=== PATIENT | female | born 1955 | race Caucasian/White ===

== ENCOUNTER 2019-05-28 04:27 | Inpatient (IN) | payer MEDICARE ==
[2019-05-28] MEDS ORDERED: Adenosine 6 MG/2 ML SDV IVPUSH ONE (04:31)
--- NOTE | 2019-05-28 04:40 | EDM.PDOC ---
ED HPI GENERAL MEDICAL PROBLEM - General Chief Complaint: Cardiovascular Problem Stated Complaint: MEDICAL [facility] Time Seen by Provider: 05/28/19 04:38 Source of Information: Reports: Patient History Limitations: Reports: No Limitations - History of Present Illness INITIAL COMMENTS - FREE TEXT/NARRATIVE: pt arrived with a rapid heart rhythm. She got up to go to the br and she noticed that her heart was rapid. She did not have chest pain. She did feel mildly sob. Onset: Today, Gradual, Other ( started at 3 am. ) Duration: Hour(s): Location: Reports: Chest Associated Symptoms: Reports: Diaphoresis, Shortness of Breath neck Pain Score (Numeric/FACES): 9 - Related Data Allergies Allergy/AdvReac Type Severity Reaction Status Date / Time tetracycline Allergy Other Verified 05/28/19 04:28 Home Meds: Home Meds Albuterol Sulfate [Proair Hfa] 2 puff IH Q4H PRN 03/11/17 [History] Alendronate [Fosamax] 70 mg PO WEEKLY 03/11/17 [History] Fluticasone Propionate [Flonase] 2 sprays NS DAILY PRN 03/11/17 [History] Gabapentin [Neurontin] 300 mg PO BEDTIME 03/11/17 [History] Melatonin 5 mg PO BEDTIME PRN 03/11/17 [History] Meloxicam 7.5 mg PO DAILY 03/11/17 [History] Pantoprazole Sodium [Protonix] 40 mg PO DAILY 03/11/17 [History] Simvastatin 10 mg PO BEDTIME 03/11/17 [History] Cholecalciferol (Vitamin D3) [Vitamin D] 5,000 unit PO DAILY 05/28/19 [History] [place]-3/DHA/Epa/Fish Oil [Fish Oil 1,000 mg Softgel] 1 each PO DAILY 05/28/19 [ History] ED ROS GENERAL - Review of Systems Review Of Systems: See Below Constitutional: Reports: Weakness HEENT: Reports: No Symptoms Respiratory: Reports: Shortness of Breath Cardiovascular: Reports: Palpitations, Other (pt felt like her heart was rapid. ) Endocrine: Reports: No Symptoms GI/Abdominal: Reports: No Symptoms : Reports: No Symptoms Musculoskeletal: Reports: No Symptoms Skin: Reports: No Symptoms ED EXAM, GENERAL - Physical Exam Exam: See Below Free Text/Narrative:: pt went to the br at about 3 am and it was then that she noticed that her heart was racing. She has no past history of atrial fib. Exam Limited By: No Limitations General Appearance: Alert, Anxious, Mild Distress, Other (pt has very mild tightness in her chest since her heart is so rapid. ) Ears: Normal TMs Nose: Normal Inspection Throat/Mouth: Normal Inspection Head: Atraumatic Neck: Normal Inspection Respiratory/Chest: No Respiratory Distress Cardiovascular: Tachycardia, Irregularly Irregular GI/Abdominal: Soft, Non-Tender (Female) Exam: Deferred Rectal (Female) Exam: Deferred Back Exam: Normal Inspection Extremities: Normal Inspection Neurological: Alert, Oriented, Normal Cognition Psychiatric: Normal Affect Course - Vital Signs Last Recorded V/S: Last Vital Signs Temp 35.9 C 05/28/19 07:43 Pulse 68 05/28/19 13:33 Resp 13 05/28/19 13:33 BP 133/68 05/28/19 13:33 Pulse Ox 90 L 05/28/19 13:33 - Orders/Labs/Meds Labs: Laboratory Tests 05/28/19 05/28/19 05/28/19 Range/Units 04:40 04:40 04:40 WBC 11.4 H (4.5-11.0) K/uL RBC 4.67 (3.30-5.50) M/uL Hgb 14.3 (12.0-15.0) g/dL Hct 41.9 (36.0-48.0) % MCV 90 (80-98) fL MCH 31 (27-31) pg MCHC 34 (32-36) % Plt Count 418 H (150-400) K/uL Neut % (Auto) 47 (36-66) % Lymph % (Auto) 44 (24-44) % [place] % (Auto) 7 H (2-6) % Eos % (Auto) 1 L (2-4) % Baso % (Auto) 0 (0-1) % Sodium 139 L (140-148) mmol/L Potassium 3.8 (3.6-5.2) mmol/L Chloride 105 (100-108) mmol/L Carbon Dioxide 24 (21-32) mmol/L Anion Gap 13.8 (5.0-14.0) mmol/L BUN 14 (7-18) mg/dL Creatinine 0.9 (0.6-1.0) mg/dL Est Cr Clr Drug Dosing 51.55 mL/min Estimated GFR (MDRD) > 60 (>60) Glucose 136 H (74-106) mg/dL Calcium 8.9 (8.5-10.1) mg/dL Magnesium (1.8-2.4) mg/dL Total Bilirubin 0.3 (0.2-1.0) mg/dL AST 22 (15-37) U/L ALT 22 (12-78) U/L Alkaline Phosphatase 72 (46-116) U/L Troponin I 0.027 (0.000-0.056) ng/mL Total Protein 6.8 (6.4-8.2) g/dL Albumin 3.5 (3.4-5.0) g/dL Globulin 3.3 (2.3-3.5) g/dL Albumin/Globulin Ratio 1.1 L (1.2-2.2) TSH, Ultra Sensitive (0.358-3.740) uIU/mL 05/28/19 05/28/19 Range/Units 04:40 04:40 WBC (4.5-11.0) K/uL RBC (3.30-5.50) M/uL Hgb (12.0-15.0) g/dL Hct (36.0-48.0) % MCV (80-98) fL MCH (27-31) pg MCHC (32-36) % Plt Count (150-400) K/uL Neut % (Auto) (36-66) % Lymph % (Auto) (24-44) % [place] % (Auto) (2-6) % Eos % (Auto) (2-4) % Baso % (Auto) (0-1) % Sodium (140-148) mmol/L Potassium (3.6-5.2) mmol/L Chloride (100-108) mmol/L Carbon Dioxide (21-32) mmol/L Anion Gap (5.0-14.0) mmol/L BUN (7-18) mg/dL Creatinine (0.6-1.0) mg/dL Est Cr Clr Drug Dosing mL/min Estimated GFR (MDRD) (>60) Glucose (74-106) mg/dL Calcium (8.5-10.1) mg/dL Magnesium 2.0 (1.8-2.4) mg/dL Total Bilirubin (0.2-1.0) mg/dL AST (15-37) U/L ALT (12-78) U/L Alkaline Phosphatase (46-116) U/L Troponin I (0.000-0.056) ng/mL Total Protein (6.4-8.2) g/dL Albumin (3.4-5.0) g/dL Globulin (2.3-3.5) g/dL Albumin/Globulin Ratio (1.2-2.2) TSH, Ultra Sensitive 2.456 (0.358-3.740) uIU/mL Meds: Medications Discontinued Medications Generic Name Dose Route Start Last Admin Trade Name Freq PRN Reason Stop Dose Admin Adenosine 6 mg 05/28/19 04:31 05/28/19 04:44 Adenocard IVPUSH 05/28/19 04:32 6 mg NOW ONE Administration Albuterol 0 gm 05/28/19 06:21 Ventolin Hfa INH Q4H PRN Shortness of Breath Aspirin 324 mg 05/28/19 14:02 05/28/19 14:11 Aspirin PO 05/28/19 14:03 324 mg ONETIME ONE Administration Diltiazem HCl 10 mg 05/28/19 04:49 05/28/19 05:05 Diltiazem IVPUSH 05/28/19 04:50 10 mg ONETIME ONE Administration Diltiazem HCl 10 mg 05/28/19 06:23 05/28/19 06:27 Diltiazem IVPUSH 05/28/19 06:24 10 mg ONETIME ONE Administration Fluticasone Propionate 0 gm 05/28/19 06:21 Flonase NASBOTH DAILY PRN Congestion Diltiazem HCl 125 mg/ Sodium 125 mls @ 5 mls/hr 05/28/19 05:00 05/28/19 09:12 Chloride IV 0 mg/hr TITRATE IGNACIO 0 mls/hr Titration Protocol 5 MG/HR Sodium Chloride 1,000 mls @ 200 mls/hr 05/28/19 05:00 05/28/19 05:07 Normal Saline IV 200 mls/hr ASDIRECTED IGNACIO Administration Sodium Chloride 1,000 mls @ 125 mls/hr 05/28/19 06:30 Normal Saline IV ASDIRECTED IGNACIO - Re-Assessments/Exams Free Text/Narrative Re-Assessment/Exam: 05/28/19 04:57 pt was given adenogard 6 mg iv nd this did show that she was in atrial fib. A cardizem bolus of 10 mg and a cardizem drip was started. She does have a bp of 102 so will add fluids at 200 an watch her bp carefully. Departure - Departure Time of Disposition: 07:50 Disposition: Admitted As Inpatient 64 Condition: Fair Clinical Impression: Atrial fibrillation, new onset
[2019-05-28] MEDS ORDERED: Diltiazem 25 MG/5 ML SDV IVPUSH ONE ×2 (04:49→06:23)
[2019-05-28] MEDS ORDERED: Diltiazem 125 MG in Sodium Chloride 0.9% 100 ML IV SCH (05:00)
[2019-05-28] MEDS ORDERED: Sodium Chloride 0.9% 1,000 ML IV SCH ×2 (05:00→06:30)
--- NOTE | 2019-05-28 05:32 | CRLCR ---
INDICATION: RAPID HEARTRATE TECHNIQUE: Chest 1 view. COMPARISON: None. FINDINGS: Cardiovascular and mediastinum: Heart size and vasculature are normal in caliber and appearance. Mediastinum is within normal limits. Lungs and pleural space: Lungs are clear. No sign of infiltrate or mass. No sign of pleural effusion. No pneumothorax. Bones and soft tissues: No significant findings. IMPRESSION: Unremarkable chest. Dictated by: Rony Singh MD @ 05/28/2019 05:29:28 (Electronically Signed)
[2019-05-28] MEDS ORDERED: Albuterol 8 GM Inhaler INH PRN (06:21)
[2019-05-28] MEDS ORDERED: Fluticasone Propionate Nasal Spray 16 GM Bottle NASBOTH PRN (06:21)
--- NOTE | 2019-05-28 12:47 | HP ---
CHIEF COMPLAINT: Tightness in her chest. HISTORY OF PRESENT ILLNESS: A 63-year-old who states that she has had few episodes similar to this in the past but only lasts for a few seconds and she will belch, and it will go away. About 3 a.m., she got up to go to the bathroom and had a tightness in her chest and felt that her heart was racing. She felt a little bit short of breath, sat down, and tried to take some deep breaths but it did not go away. Came in by ambulance for further evaluation. She was evaluated by emergency room physician, was noted to be in atrial fibrillation with rapid ventricular response. The patient given IV diltiazem and then started on diltiazem drip, which really has not slowed down much. I was asked to admit the patient for further evaluation and treatment. The patient denied any chest pain. She has shortness of breath with a little bit of tightness in her chest. She denies a history of heart problems in the past other than few of these episodes, which lasted for few seconds in the past. PAST MEDICAL HISTORY: She has had chronic back problems. She had right fifth finger surgery, but otherwise, she states really not a lot of other medical problems. MEDICATIONS: She takes alendronate 70 mg weekly, albuterol inhaler p.r.n., vitamin D, gabapentin 300 mg at bedtime, melatonin 5 mg at bedtime p.r.n., meloxicam 7.5 mg daily, omega-3, pantoprazole 40 mg daily, simvastatin 10 mg daily, and Flonase nasal spray. ALLERGIES: TO TETRACYCLINE. SOCIAL HISTORY: She smokes a few cigarettes a day. Alcohol, she drinks 2 drinks a year. FAMILY HISTORY: Father had bypass surgery. Brother had heart trouble. REVIEW OF SYSTEMS: Denies headaches, vision changes, or upper respiratory symptoms. No chest pain. Just a little bit of tightness with shortness of breath. No cough. No nausea, vomiting, diarrhea, or constipation. No urinary problems reported. No swelling in her legs. No skin problems reported. No neurologic complaints reported. OBJECTIVE: VITAL SIGNS: Weight 69 kg; temperature 35.4; pulse 130s to 150s, currently in the 140s; blood pressure 102/74; respirations 17 to 24; O2 saturation 91% on room air, was 95% on 1 L. NEUROLOGIC: She is alert and oriented x3. Mental status is normal. HEENT: Pharynx is clear. NECK: Supple. No adenopathy, thyromegaly, JVD, or carotid bruits. LUNGS: Clear. HEART: Irregularly irregular with tachycardia. ABDOMEN: Soft, nontender. No mass or organomegaly palpated. EXTREMITIES: No edema. Pedal pulses are palpable and equal bilaterally. SKIN: Negative. NEUROLOGIC: Cranial nerves II through XII are grossly intact. DATA: EKG shows atrial fibrillation with rapid ventricular response. Lab: White count 11.4, hemoglobin 14.3, and platelets 418,000. Sodium 139, potassium 3.8, chloride 105, BUN is 14, creatinine 0.9, and glucose 136. Liver functions were normal. Troponin 0.027. TSH 2.456. ASSESSMENT: Atrial fibrillation with rapid ventricular response. Continue with diltiazem drip and we will transfer her care to the Hospitalist Service for further evaluation. Get another troponin in a few hours. Check serial enzymes. Rony Peralta MD /[id number]
[2019-05-28 13:34] VITALS: BP 133/68; PULSE 68
[2019-05-28] MEDS ORDERED: Aspirin 81 MG Tab.Chew PO ONE (14:02)
--- NOTE | 2019-05-28 17:04 | PCM.DCSUM1 ---
Discharge Summary - Hospital Course Brief History: 63-year-old female who presented with chest tightness and palpitations. Workup in the emergency room revealed evidence for atrial fibrillation with a rapid ventricular response and the patient was admitted for management. - Discharge Data Discharge Date: 05/28/19 Discharge Disposition: Against Medical Advice 07 Condition: Stable - Referral to Home Health Primary Care Physician: PCP None - Discharge Diagnosis/Problem(s) (1) Paroxysmal atrial fibrillation with rapid ventricular response SNOMED Code(s): 605716443, 489961644965020 ICD Code: I48.0 - PAROXYSMAL ATRIAL FIBRILLATION Status: Acute (2) Non-ST elevation (NSTEMI) myocardial infarction SNOMED Code(s): 74468279 ICD Code: I21.4 - NON-ST ELEVATION (NSTEMI) MYOCARDIAL INFARCTION Status: Acute - Patient Summary/Data Hospital Course: Floridalma presented to the emergency room with palpitations and chest tightness. Workup in the emergency room revealed evidence for atrial fibrillation with rapid ventricular response. Initial troponin was normal. She was given a bolus dose of diltiazem and then started on an infusion to manage her atrial fibrillation. She was admitted to the intensive care unit for further management. Repeat troponin later that morning was up to 0.25. The patient did receive aspirin at this point and I was still under the suspicion that she had a demand ischemia type leak of the troponin because of her tachycardia. Around this time she also converted to a normal sinus rhythm. We did get an EKG at that point that did not show any acute evidence for ischemia. With the significant jump in the troponin we did repeat another troponin 3 hours later and also obtained an echocardiogram. The echocardiogram showed normal ejection fraction and no obvious wall motion abnormalities. She did have some mild to maybe moderate valve abnormalities involving aortic insufficiency and mild to moderate mitral regurgitation. Repeat troponin at around noon was up to 0.47. Prior to being able to discuss these results with the patient she elected to leave AGAINST MEDICAL ADVICE. I was unable to get to her room prior to her leaving the hospital. She told nursing she felt fine. They did review with her the concern that she may be having heart attack but she was adamant that she was going home. She did sign out AGAINST MEDICAL ADVICE prior to my arrival. I' m concerned that she may be having a non-ST segment nocardial infarction and would benefit from cardiology evaluation. At the very least she needs stress testing. - Discharge Plan *PRESCRIPTION DRUG MONITORING PROGRAM REVIEWED*: Not Applicable *COPY OF PRESCRIPTION DRUG MONITORING REPORT IN PATIENT MICK: Not Applicable Home Medications: Home Meds Albuterol Sulfate [Proair Hfa] 2 puff IH Q4H PRN 03/11/17 [History] Alendronate [Fosamax] 70 mg PO WEEKLY 03/11/17 [History] Fluticasone Propionate [Flonase] 2 sprays NS DAILY PRN 03/11/17 [History] Gabapentin [Neurontin] 300 mg PO BEDTIME 03/11/17 [History] Melatonin 5 mg PO BEDTIME PRN 03/11/17 [History] Meloxicam 7.5 mg PO DAILY 03/11/17 [History] Pantoprazole Sodium [Protonix] 40 mg PO DAILY 03/11/17 [History] Simvastatin 10 mg PO BEDTIME 03/11/17 [History] Cholecalciferol (Vitamin D3) [Vitamin D] 5,000 unit PO DAILY 05/28/19 [History] [place]-3/DHA/Epa/Fish Oil [Fish Oil 1,000 mg Softgel] 1 each PO DAILY 05/28/19 [ History] Oxygen Therapy Mode: Room Air Forms: ED Department Discharge Referrals: PCP,None [Primary Care Provider] - - Discharge Summary/Plan Comment DC Time >30 min.: No - Patient Data Vitals - Most Recent: Last Vital Signs Temp 35.9 C 05/28/19 07:43 Pulse 68 05/28/19 13:33 Resp 13 05/28/19 13:33 BP 133/68 05/28/19 13:33 Pulse Ox 90 L 05/28/19 13:33 Weight - Most Recent: 70.1 kg Lab Results - Last 24 hrs: Laboratory Results - last 24 hr 05/28/19 05/28/19 05/28/19 Range/Units 04:40 04:40 04:40 WBC 11.4 H (4.5-11.0) K/uL RBC 4.67 (3.30-5.50) M/uL Hgb 14.3 (12.0-15.0) g/dL Hct 41.9 (36.0-48.0) % MCV 90 (80-98) fL MCH 31 (27-31) pg MCHC 34 (32-36) % Plt Count 418 H (150-400) K/uL Neut % (Auto) 47 (36-66) % Lymph % (Auto) 44 (24-44) % [place] % (Auto) 7 H (2-6) % Eos % (Auto) 1 L (2-4) % Baso % (Auto) 0 (0-1) % Sodium 139 L (140-148) mmol/L Potassium 3.8 (3.6-5.2) mmol/L Chloride 105 (100-108) mmol/L Carbon Dioxide 24 (21-32) mmol/L Anion Gap 13.8 (5.0-14.0) mmol/L BUN 14 (7-18) mg/dL Creatinine 0.9 (0.6-1.0) mg/dL Est Cr Clr Drug Dosing 51.55 mL/min Estimated GFR (MDRD) > 60 (>60) Glucose 136 H (74-106) mg/dL Calcium 8.9 (8.5-10.1) mg/dL Magnesium (1.8-2.4) mg/dL Total Bilirubin 0.3 (0.2-1.0) mg/dL AST 22 (15-37) U/L ALT 22 (12-78) U/L Alkaline Phosphatase 72 (46-116) U/L Troponin I 0.027 (0.000-0.056) ng/mL Total Protein 6.8 (6.4-8.2) g/dL Albumin 3.5 (3.4-5.0) g/dL Globulin 3.3 (2.3-3.5) g/dL Albumin/Globulin Ratio 1.1 L (1.2-2.2) TSH, Ultra Sensitive (0.358-3.740) uIU/mL Urine Color (YELLOW) Urine Appearance (CLEAR) Urine pH (5.0-8.0) Ur Specific [place] (1.008-1.030) Urine Protein (NEGATIVE) mg/dL Urine Glucose (UA) (NEGATIVE) mg/dL Urine Ketones (NEGATIVE) mg/dL Urine Occult Blood (NEGATIVE) Urine Nitrite (NEGATIVE) Urine Bilirubin (NEGATIVE) Urine Urobilinogen (0.2-1.0) EU/dL Ur Leukocyte Esterase (NEGATIVE) Urine RBC (0-5) Urine WBC (0-5) Ur Epithelial Cells Amorphous Sediment Urine Bacteria Urine Mucus 05/28/19 05/28/19 05/28/19 Range/Units 04:40 04:40 08:29 WBC (4.5-11.0) K/uL RBC (3.30-5.50) M/uL Hgb (12.0-15.0) g/dL Hct (36.0-48.0) % MCV (80-98) fL MCH (27-31) pg MCHC (32-36) % Plt Count (150-400) K/uL Neut % (Auto) (36-66) % Lymph % (Auto) (24-44) % [place] % (Auto) (2-6) % Eos % (Auto) (2-4) % Baso % (Auto) (0-1) % Sodium (140-148) mmol/L Potassium (3.6-5.2) mmol/L Chloride (100-108) mmol/L Carbon Dioxide (21-32) mmol/L Anion Gap (5.0-14.0) mmol/L BUN (7-18) mg/dL Creatinine (0.6-1.0) mg/dL Est Cr Clr Drug Dosing mL/min Estimated GFR (MDRD) (>60) Glucose (74-106) mg/dL Calcium (8.5-10.1) mg/dL Magnesium 2.0 (1.8-2.4) mg/dL Total Bilirubin (0.2-1.0) mg/dL AST (15-37) U/L ALT (12-78) U/L Alkaline Phosphatase (46-116) U/L Troponin I (0.000-0.056) ng/mL Total Protein (6.4-8.2) g/dL Albumin (3.4-5.0) g/dL Globulin (2.3-3.5) g/dL Albumin/Globulin Ratio (1.2-2.2) TSH, Ultra Sensitive 2.456 (0.358-3.740) uIU/mL Urine Color Yellow (YELLOW) Urine Appearance Clear (CLEAR) Urine pH 7.0 (5.0-8.0) Ur Specific [place] 1.015 (1.008-1.030) Urine Protein Negative (NEGATIVE) mg/dL Urine Glucose (UA) Negative (NEGATIVE) mg/dL Urine Ketones Negative (NEGATIVE) mg/dL Urine Occult Blood Trace-intact H (NEGATIVE) Urine Nitrite Negative (NEGATIVE) Urine Bilirubin Negative (NEGATIVE) Urine Urobilinogen 0.2 (0.2-1.0) EU/dL Ur Leukocyte Esterase Negative (NEGATIVE) Urine RBC 0-5 (0-5) Urine WBC 0-5 (0-5) Ur Epithelial Cells Few Amorphous Sediment Not seen Urine Bacteria Few Urine Mucus Not seen 05/28/19 05/28/19 Range/Units 09:12 12:00 WBC (4.5-11.0) K/uL RBC (3.30-5.50) M/uL Hgb (12.0-15.0) g/dL Hct (36.0-48.0) % MCV (80-98) fL MCH (27-31) pg MCHC (32-36) % Plt Count (150-400) K/uL Neut % (Auto) (36-66) % Lymph % (Auto) (24-44) % [place] % (Auto) (2-6) % Eos % (Auto) (2-4) % Baso % (Auto) (0-1) % Sodium (140-148) mmol/L Potassium (3.6-5.2) mmol/L Chloride (100-108) mmol/L Carbon Dioxide (21-32) mmol/L Anion Gap (5.0-14.0) mmol/L BUN (7-18) mg/dL Creatinine (0.6-1.0) mg/dL Est Cr Clr Drug Dosing mL/min Estimated GFR (MDRD) (>60) Glucose (74-106) mg/dL Calcium (8.5-10.1) mg/dL Magnesium (1.8-2.4) mg/dL Total Bilirubin (0.2-1.0) mg/dL AST (15-37) U/L ALT (12-78) U/L Alkaline Phosphatase (46-116) U/L Troponin I 0.256 H* 0.473 H* (0.000-0.056) ng/mL Total Protein (6.4-8.2) g/dL Albumin (3.4-5.0) g/dL Globulin (2.3-3.5) g/dL Albumin/Globulin Ratio (1.2-2.2) TSH, Ultra Sensitive (0.358-3.740) uIU/mL Urine Color (YELLOW) Urine Appearance (CLEAR) Urine pH (5.0-8.0) Ur Specific [place] (1.008-1.030) Urine Protein (NEGATIVE) mg/dL Urine Glucose (UA) (NEGATIVE) mg/dL Urine Ketones (NEGATIVE) mg/dL Urine Occult Blood (NEGATIVE) Urine Nitrite (NEGATIVE) Urine Bilirubin (NEGATIVE) Urine Urobilinogen (0.2-1.0) EU/dL Ur Leukocyte Esterase (NEGATIVE) Urine RBC (0-5) Urine WBC (0-5) Ur Epithelial Cells Amorphous Sediment Urine Bacteria Urine Mucus Med Orders - Current: Current Medications Discontinued Medications Adenosine (Adenocard) 6 mg IVPUSH NOW ONE Stop: 05/28/19 04:32 Last Admin: 05/28/19 04:44 Dose: 6 mg Albuterol (Ventolin Hfa) 0 gm INH Q4H PRN PRN Reason: Shortness of Breath Aspirin (Aspirin) 324 mg PO ONETIME ONE Stop: 05/28/19 14:03 Last Admin: 05/28/19 14:11 Dose: 324 mg Diltiazem HCl (Diltiazem) 10 mg IVPUSH ONETIME ONE Stop: 05/28/19 04:50 Last Admin: 05/28/19 05:05 Dose: 10 mg Diltiazem HCl (Diltiazem) 10 mg IVPUSH ONETIME ONE Stop: 05/28/19 06:24 Last Admin: 05/28/19 06:27 Dose: 10 mg Fluticasone Propionate (Flonase) 0 gm NASBOTH DAILY PRN PRN Reason: Congestion Diltiazem HCl 125 mg/ Sodium (Chloride) 125 mls @ 5 mls/hr IV TITRATE IGNACIO; Protocol Last Titration: 05/28/19 09:12 Dose: 0 mg/hr, 0 mls/hr Sodium Chloride (Normal Saline) 1,000 mls @ 200 mls/hr IV ASDIRECTED IGNACIO Last Admin: 05/28/19 05:07 Dose: 200 mls/hr Sodium Chloride (Normal Saline) 1,000 mls @ 125 mls/hr IV ASDIRECTED IGNACIO
== END 2019-05-28 14:40 | disposition left against medical advice (07) | DRG 282 ==
LOC: JP.ED 04:27 → JP.ICU 06:21
PROVIDERS: ADMIT Family Medicine; ATTEND Internal Medicine
DX: I48.91 Unspecified atrial fibrillation (principal); R06.02 Shortness of breath; R53.1 Weakness; R00.2 Palpitations; I21.4 Non-ST elevation (NSTEMI) myocardial infarction; G89.29 Other chronic pain; F17.210 Nicotine dependence, cigarettes, uncomplicated; I48.0 Paroxysmal atrial fibrillation; Z79.899 Other long term (current) drug therapy; Z88.1 Allergy status to other antibiotic agents
CPT/HCPCS: 36415; 71045; 80053; 83735; 84443; 84484; 85025; 93005; J0153; J3490 ×2; J7030 ×2; 81001; 93306; 99284; A9270-GY

== ENCOUNTER 2020-02-04 15:59 | Emergency (ER) | payer MEDICARE ==
[2020-02-04 16:38] VITALS: BP 220/95; PULSE 70
--- NOTE | 2020-02-04 16:51 | EDM.PDOC ---
<Efren Jj - Last Filed: 02/04/20 17:35> ED HPI GENERAL MEDICAL PROBLEM - General Chief Complaint: Respiratory Problem Stated Complaint: SOB Time Seen by Provider: 02/04/20 16:30 - Related Data Allergies Allergy/AdvReac Type Severity Reaction Status Date / Time tetracycline Allergy Other Verified 02/04/20 16:45 Home Meds: Home Meds Albuterol Sulfate [Proair Hfa] 2 puff IH Q4H PRN 03/11/17 [History] Alendronate [Fosamax] 70 mg PO WEEKLY 03/11/17 [History] Fluticasone Propionate [Flonase] 2 sprays NS DAILY PRN 03/11/17 [History] Gabapentin [Neurontin] 300 mg PO BEDTIME 03/11/17 [History] Melatonin 5 mg PO BEDTIME PRN 03/11/17 [History] Meloxicam 7.5 mg PO DAILY 03/11/17 [History] Pantoprazole Sodium [Protonix] 40 mg PO DAILY 03/11/17 [History] Simvastatin 10 mg PO BEDTIME 03/11/17 [History] Cholecalciferol (Vitamin D3) [Vitamin D] 5,000 unit PO DAILY 05/28/19 [History] Canadensis-3/DHA/Epa/Fish Oil [Fish Oil 1,000 mg Softgel] 1 each PO DAILY 05/28/19 [ History] Course - Vital Signs Last Recorded V/S: Last Vital Signs Temp 35.9 C L 02/04/20 16:44 Pulse 70 02/04/20 16:44 Resp 18 02/04/20 16:44 BP 220/95 H 02/04/20 16:44 Pulse Ox 96 02/04/20 16:44 Departure - Departure Time of Disposition: 17:18 Disposition: Home, Self-Care 01 Clinical Impression: Allergic rhinitis due to allergen - Discharge Information Instructions: Shortness of Breath, Adult, [id number] Referrals: Sury Wolf RN [Primary Care Provider] - Forms: ED Department Discharge Additional Instructions: As discussed, please continue to take Flonase as indicated. May purchase over the counter antiseptic throat spray and a once daily antihistamine while pollen count is high. Homeopathic remedies such as warm liquids and tea for comfort. If symptoms persist, please seek medical attention. Sepsis Event Note (ED) - Focused Exam Vital Signs: Vital Signs Temp Pulse Resp BP Pulse Ox 02/04/20 16:44 35.9 C L 70 18 220/95 H 96 02/04/20 16:34 35.9 C L 70 18 220/95 H 96 - Assessment/Plan Plan: I personally performed or re-performed the physical examination and medical decision making. I have verified all student documentation or findings, including history, physical exam and/or medical decision making. <Keyana Li M - Last Filed: 02/04/20 17:39> ED HPI GENERAL MEDICAL PROBLEM - General Source of Information: Reports: Patient History Limitations: Reports: No Limitations - History of Present Illness INITIAL COMMENTS - FREE TEXT/NARRATIVE: 64 year old female presents to Emergency Room with C/O of sore throat and post nasal drip from seasonal allergies. No fevers. No exposure to caustic chemicals or recent travel. Tried cough drops. Makes her "cough". Not sure what to take due to her Afib. Onset: Gradual Onset Date: 02/02/20 Duration: Recurring Severity: Moderate Improves with: Reports: Other (Pt has not tried OTC due to afib. 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: Musculoskeletal History: Reports: Arthritis, Back Pain, Chronic, Fracture, Other (See Below) Other Musculoskeletal History: right 5th digit Psychiatric History: Reports: Anxiety, Depression - Infectious Disease History Infectious Disease History: Reports: Chicken Pox, Measles, Mumps - Past Surgical History HEENT Surgical History: Reports: LASIK Neurological Surgical History: Reports: Other (See Below) Other Neurological Surgeries/Procedures: compression fractures Musculoskeletal Surgical History: Reports: Other (See Below) Other Musculoskeletal Surgeries/Procedures:: right 5th digit Social & Family History - Caffeine Use Caffeine Use: Reports: Coffee ED ROS GENERAL - Review of Systems Review Of Systems: See Below Constitutional: Reports: No Symptoms HEENT: Reports: Sinus Problem, Throat Pain Respiratory: Reports: Shortness of Breath Cardiovascular: Reports: No Symptoms Endocrine: Reports: No Symptoms GI/Abdominal: Reports: No Symptoms : Reports: No Symptoms Musculoskeletal: Reports: No Symptoms Skin: Reports: No Symptoms Neurological: Reports: No Symptoms Psychiatric: Reports: No Symptoms Hematologic/Lymphatic: Reports: No Symptoms Immunologic: Reports: No Symptoms ED EXAM, GENERAL - Physical Exam Exam: See Below Exam Limited By: No Limitations General Appearance: Alert, WD/WN, Mild Distress Nose: Nasal Drainage, Clear Rhinorrhea Throat/Mouth: Normal Lips, Normal Teeth, Normal Gums, Inflammation, Other ( Redness to back of throat due to post nasal drip) Head: Atraumatic Neck: Normal Inspection Respiratory/Chest: Lungs Clear, Normal Breath Sounds, No Accessory Muscle Use, Chest Non-Tender Cardiovascular: Regular Rate, Rhythm Extremities: Normal Range of Motion, Non-Tender, No Pedal Edema, Normal Capillary Refill Neurological: Alert, Oriented Psychiatric: Normal Affect, Normal Mood Skin Exam: Warm, Dry, Intact Course - Vital Signs Text/Narrative:: Discussed seasonal allergies with patient and OTC remedies. Considered the use of Prednisone, but will hold off and use OTC throat spray and antihistamine. Pt was agreeable. Did indicate if not better in a few days, to return for further care. Departure - Departure Condition: Good - Discharge Information *PRESCRIPTION DRUG MONITORING PROGRAM REVIEWED*: Not Applicable *COPY OF PRESCRIPTION DRUG MONITORING REPORT IN PATIENT MICK: Not Applicable Sepsis Event Note (ED) - Evaluation Sepsis Screening Result: No Definite Risk
== END 2020-02-04 17:18 | disposition home or self-care (01) ==
LOC: JP.ED 15:59
DX: J30.1 Allergic rhinitis due to pollen (principal); J44.9 Chronic obstructive pulmonary disease, unspecified; I48.91 Unspecified atrial fibrillation; E78.00 Pure hypercholesterolemia, unspecified; K21.9 Gastro-esophageal reflux disease without esophagitis; Z88.1 Allergy status to other antibiotic agents; Z79.899 Other long term (current) drug therapy
CPT/HCPCS: 99284